=== PATIENT | female | born 1940 ===

== ENCOUNTER 2020-10-29 20:09 | Emergency (ER) | payer OTHER ==
--- NOTE | 2020-10-29 22:12 | RAD REPORT ---
EXAM DESCRIPTION: RAD - Chest Single View - 10/29/2020 10:04 pm CLINICAL HISTORY: DYSPNEA Chest pain. FINDINGS: Portable technique limits examination quality. The lungs are mildly emphysematous but clear. Right apical pleural thickening is present, unchanged. The heart is mildly enlarged in size multilead pacer/defibrillator device present. Sternotomy wires a re noted. IMPRESSION: No acute intrathoracic process suspected.
--- NOTE | 2020-10-29 22:23 | EDPHYS ---
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 22:16 The patient presents with a history of irregular heart beat, heart racing. Context: The jw symptoms occur at rest. Onset: The symptoms/episode began/occurred this morning. Duration: The patient or guardian reports a single episode, that is still ongoing. Modifying factors: The symptoms are aggravated by nothing. The symptoms are alleviated by nothing. Associated signs and symptoms: The patient has no apparent associated signs or symptoms. Severity of symptoms: At their worst the symptoms were mild moderate in the emergency department the symptoms are unchanged. The patient has not experienced similar symptoms in the past. Historical: - Allergies: 21:04 No Known Allergies; bb - Immunization history:: Adult Immunizations up to date, Client reports receiving the 2nd dose of the Covid vaccine. - Social history:: Smoking status: Patient denies any tobacco usage or history of. - Family history:: not pertinent. ROS: 22:16 Constitutional: Negative for fever, chills, and weight loss, Eyes: Negative for injury, jw pain, redness, and discharge, ENT: Negative for injury, pain, and discharge, Neck: Negative for injury, pain, and swelling, Respiratory: Negative for shortness of breath, cough, wheezing, and pleuritic chest pain, Abdomen/GI: Negative for abdominal pain, nausea, vomiting, diarrhea, and constipation, Back: Negative for injury and pain, : Negative for injury, bleeding, discharge, and swelling, MS/Extremity: Negative for injury and deformity, Skin: Negative for injury, rash, and discoloration, Neuro: Negative for headache, weakness, numbness, tingling, and seizure, Psych: Negative for depression, anxiety, suicide ideation, homicidal ideation, and hallucinations, Allergy/Immunology: Negative for hives, rash, and allergies, Endocrine: Negative for neck swelling, polydipsia, polyuria, polyphagia, and marked weight changes, Hematologic/Lymphatic: Negative for swollen nodes, abnormal bleeding, and unusual bruising. 22:16 Cardiovascular: Positive for palpitations. Exam: 22:16 Constitutional: This is a well developed, well nourished patient who is awake, alert, jw and in no acute distress. Head/Face: Normocephalic, atraumatic. Eyes: Pupils equal round and reactive to light, extra-ocular motions intact. Lids and lashes normal. Conjunctiva and sclera are non-icteric and not injected. Cornea within normal limits. Periorbital areas with no swelling, redness, or edema. ENT: Nares patent. No nasal discharge, no septal abnormalities noted. Tympanic membranes are normal and external auditory canals are clear. Oropharynx with no redness, swelling, or masses, exudates, or evidence of obstruction, uvula midline. Mucous membranes moist. Neck: Trachea midline, no thyromegaly or masses palpated, and no cervical lymphadenopathy. Supple, full range of motion without nuchal rigidity, or vertebral point tenderness. No Meningismus. Chest/axilla: Normal chest wall appearance and motion. Nontender with no deformity. No lesions are appreciated. Respiratory: Lungs have equal breath sounds bilaterally, clear to auscultation and percussion. No rales, rhonchi or wheezes noted. No increased work of breathing, no retractions or nasal flaring. Abdomen/GI: Soft, non-tender, with normal bowel sounds. No distension or tympany. No guarding or rebound. No evidence of tenderness throughout. Back: No spinal tenderness. No costovertebral tenderness. Full range of motion. Female : Normal external genitalia. Skin: Warm, dry with normal turgor. Normal color with no rashes, no lesions, and no evidence of cellulitis. MS/ Extremity: Pulses equal, no cyanosis. Neurovascular intact. Full, normal range of motion. Neuro: Awake and alert, GCS 15, oriented to person, place, time, and situation. Cranial nerves II-XII grossly intact. Motor strength 5/5 in all extremities. Sensory grossly intact. Cerebellar exam normal. Normal gait. Psych: Awake, alert, with orientation to person, place and time. Behavior, mood, and affect are within normal limits. 22:16 Cardiovascular: Rate: tachycardic, Rhythm: irregularly irregular, Pulses: Pulses are 4+ in bilateral radial, brachial, femoral, popliteal, posterior tibial and and dorsalis pedis arteries.. Heart sounds: normal, normal S1and S2, no S3 or S4, no murmur, no rub, no gallop, Edema: is not appreciated, JVD: is not appreciated. 22:16 ECG was reviewed by the Attending Physician. Vital Signs: 21:01 BP 103 / 84; Pulse 156; Resp 16 S; Temp 97.9(TE); Pulse Ox 98% on R/A; Weight 51.26 kg bb (R); Height 5 ft. 6 in. (167.64 cm) (R); Pain 0/10; 22:57 BP 102 / 82; Pulse 110; Resp 16; Pulse Ox 98% on R/A; jm8 23:41 BP 103 / 78; Pulse 108; Resp 18; Pulse Ox 98% on R/A; ak2 10/30 00:30 BP 96 / 77; Pulse 80; Resp 16; Pulse Ox 99% on R/A; jm8 01:30 BP 104 / 80; Pulse 80; Resp 16; Pulse Ox 100% on R/A; jm8 02:33 BP 101 / 69; Pulse 80; Resp 16; Pulse Ox 98% ; 8 10/29 21:01 Body Mass Index 18.24 (51.26 kg, 167.64 cm) bb MDM: 10/29 21:35 Patient medically screened. jw 22:19 BLAYNE Risk Score: 1 - Patient's age is greater or equal to 65, 1 - 3 or more CAD risk jw factors, [Family HX] [HTN] [Elevated Cholesterol] 1 - Known CAD, Total Score = 3. Differential diagnosis: arrythmia, dehydration. Data reviewed: vital signs, nurses notes, lab test result(s), EKG, radiologic studies, plain films. Data interpreted: radiation monitor: rate is 156 beats/min, rhythm is atrial fibrillation. Test interpretation: by ED physician or midlevel provider: ECG, plain radiologic studies. Counseling: I had a detailed discussion with the patient and/or guardian regarding: the historical points, exam findings, and any diagnostic results supporting the discharge/admit diagnosis, lab results, radiology results, the need for further work-up and treatment in the hospital. 10/29 21:29 Order name: Basic Metabolic Panel; Complete Time: 23:58 em 10/29 21:29 Order name: CBC with Diff; Complete Time: 22:54 em 10/29 21:29 Order name: LFT's; Complete Time: 23:58 em 10/29 21:29 Order name: Magnesium; Complete Time: 23:58 em 10/29 21:29 Order name: NT PRO-BNP; Complete Time: 23:58 em 10/29 21:29 Order name: PT-INR; Complete Time: 22:54 em 10/29 21:29 Order name: Troponin (emerg Dept Use Only); Complete Time: 23:58 10/29 21:29 Order name: XRAY Chest (1 view); Complete Time: 22:31 em 10/29 21:29 Order name: TSH; Complete Time: 23:58 em 10/29 21:29 Order name: COVID-19 : Document "Date of Symptom Onset" if Symptomatic. 10/29 22:14 Order name: Digoxin [facility] 10/29 22:14 Order name: Digoxin Level; Complete Time: 23:58 EDDC 10/29 23:02 Order name: T4 Free; Complete Time: 23:58 [facility] 10/29 21:29 Order name: EKG; Complete Time: 21:30 em 10/29 21:29 Order name: Cardiac monitoring; Complete Time: 21:31 10/29 21:29 Order name: EKG - Nurse/Tech; Complete Time: 21:31 10/29 21:29 Order name: IV Saline Lock; Complete Time: 22:43 em 10/29 21:29 Order name: Labs collected and sent; Complete Time: 22:43 10/29 21:29 Order name: O2 Per Protocol; Complete Time: 21:54 10/29 21:29 Order name: O2 Sat Monitoring; Complete Time: 21:54 em EC:16 Rate is 138 beats/min. Rhythm is irregularly irregular. QRS [place] is Normal. SC interval jw is normal. QRS interval is prolonged at 130 msec. QT interval is normal. No Q waves. T waves are Normal. No ST changes noted. Clinical impression: Atrial Fibrillation and No evidence of ischemia. Interpreted by me. Reviewed by me. Administered Medications: 22:35 Drug: amiodarone 150 mg Volume: 100 ml; Route: IVPB; Infused Over: 10 mins; Site: right jm8 antecubital; 22:47 Follow up: Response: No adverse reaction; IV Status: Completed infusion jm8 22:46 Not Given (Patient Refused): NS 0.9% 1000 ml IV at 125 ml/hr continuous 8 22:48 Drug: amiodarone 900 mg, D5W 500 ml Route: IVPB; Rate: 1 mg/min; Site: right 8 antecubital; 10/30 00:12 Drug: Digoxin 0.25 mg Route: IVP; Site: right antecubital; 8 00:28 Follow up: Response: No adverse reaction 8 Disposition Summary: 10/29/20 22:23 Transfer Ordered Transfer Location: Other Acute Care Facility jw Reason: Higher level of care jw Condition: Fair jw Problem: new jw Symptoms: have improved jw Accepting Physician: TO DR WON HOUSTON(10/30/20 02:50) jmZachary Diagnosis - Persistent atrial fibrillation - WITH RVR jw - Weakness jw Forms: - Medication Reconciliation Form jw - SBAR form jw Signatures: Dispatcher [employer] EDDio Garcia MD MD cha Munoz, Edgar, RN RN Johanne Arreola RN RN Artem Ashraf RN RN jm8 Corrections: (The following items were deleted from the chart) 02:50 10/29 22:[address] WON HOUSTON cha
--- NOTE | 2020-10-29 22:23 | ER ---
Nurse's Notes [facility] Name: Shantal Bee Age: 80 yrs Sex: Female : 1940 Arrival Date: 10/29/2020 Time: 20:12 Bed 2 Private MD: Diagnosis: Persistent atrial fibrillation-WITH RVR;Weakness Presentation: 10/29 21:01 Chief complaint: Patient states: she started having a fast hear rate today in the 150s bb her normal rate is in the 60s she is feeling weak and short of breath. Coronavirus screen: At this time, the client does not indicate any symptoms associated with coronavirus-19. Ebola Screen: No symptoms or risks identified at this time. Initial Sepsis Screen: Does the patient meet any 2 criteria? No. Patient's initial sepsis screen is negative. Does the patient have a suspected source of infection? No. Patient's initial sepsis screen is negative. Risk Assessment: Do you want to hurt yourself or someone else? Patient reports no desire to harm self or others. Onset of symptoms was October 29, 2020. 21:01 Method Of Arrival: Ambulatory bb 21:01 Acuity: JAMIE 2 bb Historical: - Allergies: 21:04 No Known Allergies; bb - Immunization history:: Adult Immunizations up to date, Client reports receiving the 2nd dose of the Covid vaccine. - Social history:: Smoking status: Patient denies any tobacco usage or history of. - Family history:: not pertinent. Screenin:44 Abuse screen: Denies threats or abuse. Denies injuries from another. Nutritional jm8 screening: No deficits noted. Tuberculosis screening: Tuberculosis screening: No symptoms or risk factors identified. Fall Risk None identified. Assessment: 22:53 General: Appears in no apparent distress. comfortable, Behavior is calm, cooperative, jm8 appropriate for age. Pain: Denies pain. Neuro: No deficits noted. Level of Consciousness is awake, alert, obeys commands, Oriented to person, place, time. Cardiovascular: Reports palpitations, elevated heart rate. History of pacemaker and defibrillator. Cardiovascular: Rhythm is A-V sequential pacer. Respiratory: No deficits noted. Airway is patent Trachea midline Respiratory effort is even, unlabored, Respiratory pattern is regular, symmetrical. GI: No deficits noted. No signs and/or symptoms were reported involving the gastrointestinal system. : No deficits noted. No signs and/or symptoms were reported regarding the genitourinary system. EENT: No deficits noted. No signs and/or symptoms were reported regarding the EENT system. Derm: No deficits noted. No signs and/or symptoms reported regarding the dermatologic system. Musculoskeletal: No deficits noted. No signs and/or symptoms reported regarding the musculoskeletal system. 23:41 Reassessment: Patient and/or family updated on plan of care and expected duration. Pain ak2 level reassessed. 10/30 00:26 Reassessment: - [place]- . [facility] 00:27 Reassessment: Patient appears in no apparent distress at this time. No changes from [facility] previously documented assessment. Patient and/or family updated on plan of care and expected duration. Pain level reassessed. 01:30 Reassessment: Patient appears in no apparent distress at this time. No changes from [facility] previously documented assessment. Patient and/or family updated on plan of care and expected duration. Pain level reassessed. 02:41 Reassessment: Patient appears in no apparent distress at this time. No changes from [facility] previously documented assessment. Patient and/or family updated on plan of care and expected duration. Pain level reassessed. 02:42 Reassessment: Patient leaves ER at this time with EMS. 8 Vital Signs: 10/29 21:01 BP 103 / 84; Pulse 156; Resp 16 S; Temp 97.9(TE); Pulse Ox 98% on R/A; Weight 51.26 kg bb (R); Height 5 ft. 6 in. (167.64 cm) (R); Pain 0/10; 22:57 BP 102 / 82; Pulse 110; Resp 16; Pulse Ox 98% on R/A; 8 23:41 BP 103 / 78; Pulse 108; Resp 18; Pulse Ox 98% on R/A; ak2 10/30 00:30 BP 96 / 77; Pulse 80; Resp 16; Pulse Ox 99% on R/A; 8 01:30 BP 104 / 80; Pulse 80; Resp 16; Pulse Ox 100% on R/A; 02:33 BP 101 / 69; Pulse 80; Resp 16; Pulse Ox 98% ; 8 10/29 21:01 Body Mass Index 18.24 (51.26 kg, 167.64 cm) ED Course: 10/29 20:12 Patient arrived in ED. cf2 20:15 Dio Shoemaker MD is Attending Physician. jw 21:04 Triage completed. bb 21:04 Arm band placed on Patient placed in an exam room, on a stretcher, on career agent, bb on pulse oximetry. Family accompanied patient. 22:04 XRAY Chest (1 view) In Process Unspecified. EDMS 22:11 Initiated transfer with Selam Monroy at [facility] per Dr. Shoemaker. Dr. Shoemaker spoke tt3 with Dr. Joseph and Dr. Hester regarding the transfer request prior to initiating. 22:30 Inserted saline lock: 20 gauge in right antecubital area, using aseptic technique. oe Blood collected. 22:54 Selam called back to speak with Dr. Shoemaker regarding the transfer request. tt3 22:55 Patient has correct armband on for positive identification. Bed in low position. Call tt3 light in reach. Side rails up X2. Adult w/ patient. 23:41 Samuel Yao is Primary Nurse. ak2 10/30 00:46 Peyton Urban gave admin approval. The pt is going to [facility] to the ER. Nurse tt3 to call report to . Face sheet and MOT to be faxed to per Peyton's request. The accepting physician is Dr. Chowdary. 02:44 No provider procedures requiring assistance completed. Patient transferred, IV remains jm8 in place. Administered Medications: 10/29 22:35 Drug: amiodarone 150 mg Volume: 100 ml; Route: IVPB; Infused Over: 10 mins; Site: right 8 antecubital; 22:47 Follow up: Response: No adverse reaction; IV Status: Completed infusion jm8 22:46 Not Given (Patient Refused): NS 0.9% 1000 ml IV at 125 ml/hr continuous jm8 22:48 Drug: amiodarone 900 mg, D5W 500 ml Route: IVPB; Rate: 1 mg/min; Site: right jm8 antecubital; 10/30 00:12 Drug: Digoxin 0.25 mg Route: IVP; Site: right antecubital; 8 00:28 Follow up: Response: No adverse reaction jm8 Outcome: 10/29 22:23 ER care complete, transfer ordered by . jw 10/30 02:43 Transferred to other acute care facility: [facility]. jm8 Condition: good Instructed on the need for transfer. 02:50 Patient left the ED. jm8 Signatures: Dispatcher [employer] EDDio Garcia MD MD cha Ballard, Brenda, RN RN bb Freddy Rodriguez Celesta cf2 Trim, Devon tt3 Artem Benoit, RN RN jm8 Samuel Yao ak2 Corrections: (The following items were deleted from the chart) 10/29 22:56 22:11 Initiated transfer with Musa at [facility] per Dr. Shoemaker. Dr. Shoemaker spoke with tt3 Dr. Joseph and Dr. Hester regarding the transfer request prior to initiating. tt3 10/30 00:53 10/29 22:11 Initiated transfer with Abdullahi at [facility] per Dr. Sohemaker. Dr. Shoemaker spoke tt3 with Dr. Joseph and Dr. Hester regarding the transfer request prior to initiating. tt3 10/30 00:53 10/29 22:55 Patient has correct armband on for positive identification. Bed in low tt3 position. Call light in reach. Side rails up X2. Adult w/ patient. jm8 10/31 99:10/29 22:54 Abdullahi called back to speak with Dr. Shoemaker regarding the transfer tt3 request. tt3
[2020-10-29 22:40] LABS: Absolute Lymphocytes (CBC) 1.1 K/uL (0.7-4.9); Basophils % 0.7 % (0-1.3); Hematocrit 44.6 % (36.0-45.0); Lymphocytes % 11.2 % (15.3-44.8); Protime INR 1.28; RBC Red Blood Cell Count 4.67 M/uL (3.86-4.86)
[2020-10-29] MEDS ORDERED: AMIODARONE HCL 150 MG/3 ML INJ IV ONE ×3 (22:40→22:56)
[2020-10-29] MEDS ORDERED: NA CHLORIDE 0.9% 1,000 ML ONE (22:41)
[2020-10-29] MEDS ORDERED: D5W 100 ML IV ONE (22:46)
[2020-10-29 22:59] LABS: ALT/SGPT 31 U/L (12-78); AST/SGOT 20 U/L (15-37); Albumin 4.4 g/dL (3.4-5.0); Alkaline Phosphatase 65 U/L (45-117); BUN Blood Urea Nitrogen 28 mg/dL (7-18); Bicarbonate 28 mmol/L (21-32); Bilirubin Direct 0.2 mg/dL (0-0.2); Bilirubin Total 0.5 mg/dL (0.2-1.0); Glucose Level 125 mg/dL (74-106); Magnesium 2.5 mg/dL (1.8-2.4); NT PRO-BNP 6248 pg/mL (<450); Protein, Total 8.4 g/dL (6.4-8.2); Sodium Level 137 mmol/L (136-145); Troponin (Emerg Dept Use Only) < 0.02 ng/mL (0.0-0.045)
[2020-10-30] MEDS ORDERED: DIGOXIN 0.25 MG/ML AMP ONE (00:27)
[2020-10-30 03:15] VITALS: TEMP 97.9
[2020-10-30 03:24] VITALS: BP 101/69; O2SAT 98
--- NOTE | 2020-10-30 07:43 | EKG ---
Test Date: 2020-10-29 Test Time: 21:14:42 Radio Board Operator Announcer: JIMMY MEASUREMENT RESULTS: Intervals: Rate: 138 UT: QRSD: 130 QT: 342 QTc: 518 [place]: P: UT: QRS: 81 T: 112 INTERPRETIVE STATEMENTS: Atrial fibrillation with rapid ventricular response Nonspecific intraventricular block Cannot rule out Septal infarct, age undetermined Abnormal ECG Compared to ECG 01/14/2007 09:20:58 Myocardial infarct finding now present Sinus rhythm no longer present T-wave abnormality no longer present Prolonged QT interval no longer present Electronically Signed On 10-30-20 07:42:32 CDT by Teodoro Foreman
== END 2020-10-30 02:50 ==
LOC: ER 20:09
DX: I48.19 Other persistent atrial fibrillation (principal); R53.1 Weakness; Z95.810 Presence of automatic (implantable) cardiac defibrillator
CPT/HCPCS: 93005; 85025; 80048; 36415; 83735; 85610; 80162; 80076; 84443; 84484; 84439; 83880; 71045; 96375; 96374; 99285; J1160; J0282 ×3; J7060; J7030